=== PATIENT | female | born 1990 | race Two or more races ===

== ENCOUNTER 2021-02-13 13:00 | Inpatient (IN) | payer OTHER ==
[~2021-02-13] VITALS: Ht 162.6 cm; Wt 3.6 kg
[2021-03-11] MEDS ORDERED: PRENATAL CAPLE1 EAC1 PO (16:10)
[2021-03-11] MEDS ORDERED: IRON325 MG PO (16:11)
== END 2021-03-14 13:54 | disposition home or self-care (01) | DRG 788 ==
LOC: LDR 03-06 13:00 → SURG-SUITE 03-11 14:02 → LDR 03-11 14:02 → SURG-SUITE 03-12 13:37
PROVIDERS: ADMIT Obstetrics & Gynecology; ATTEND Obstetrics & Gynecology
PROC: 3E0P7VZ Introduction of Hormone into Female Reproductive, Via Natural or Artificial Opening (ICD-10-PCS; 2021-03-11)
PROC: 4A1HXFZ Monitoring of Products of Conception, Cardiac Rhythm, External Approach (ICD-10-PCS; 2021-03-11)
PROC: 10D00Z1 Extraction of Products of Conception, Low, Open Approach (ICD-10-PCS; principal; 2021-03-12 11:00)
DX: O61.0 Failed medical induction of labor (principal); O62.0 Primary inadequate contractions; O99.824 Streptococcus B carrier state complicating childbirth; Z3A.40 40 weeks gestation of pregnancy; Z37.0 Single live birth; Z20.822 Contact with and (suspected) exposure to COVID-19

== ENCOUNTER 2021-02-27 10:03 | Outpatient (CLI) | payer OTHER | END 2021-02-27 10:52 | disposition home or self-care (01) | LOC: NST 10:03 | PROVIDERS: ATTEND Obstetrics & Gynecology | DX: Z34.83 Encounter for supervision of other normal pregnancy, third trimester (principal) ==

== ENCOUNTER 2021-03-04 10:03 | Outpatient (CLI) | payer OTHER | END 2021-03-04 10:56 | disposition home or self-care (01) | LOC: NST 10:03 | PROVIDERS: ATTEND Obstetrics & Gynecology Maternal & Fetal Medicine | DX: Z34.83 Encounter for supervision of other normal pregnancy, third trimester (principal) ==

== ENCOUNTER 2021-03-07 08:04 | Outpatient (CLI) | payer OTHER | END 2021-03-07 08:34 | disposition home or self-care (01) | LOC: NST 08:04 | PROVIDERS: ATTEND Obstetrics & Gynecology Maternal & Fetal Medicine | DX: Z34.83 Encounter for supervision of other normal pregnancy, third trimester (principal) ==

== ENCOUNTER 2024-05-12 08:30 | Inpatient (IN) | payer OTHER ==
[~2024-05-12] VITALS: Ht 162.6 cm; Wt 3.6 kg
[~2024-05-12 08:30] MED LIST: IRON325 MG PO; PRENATAL CAPLE1 EAC1 PO
[2024-05-12 10:42] LABS: INR 0.97; PROTHROMBIN TIME 10.6 SECONDS (9.0-11.5)
[2024-05-12 11:38] LABS: ALBUMIN 2.7 gm/dL (3.4-5.0); BILIRUBIN TOTAL 0.35 mg/dL (0.3-1.2); CALCIUM 9.2 mg/dL (8.5-10.1); CREATININE SERUM 0.43 mg/dL (0.55-1.02); GFR 169.1; GLOBULINA 3.9 G/DL (2.4-3.5); POTASSIUM 4.22 mEq/L (3.5-5.1); TOTAL PROTEIN 6.6 gm/dL (6.4-8.2)
[2024-05-17 06:11] VITALS: BP 106/73
[2024-05-17] MEDS ORDERED: OXYTOCIN 1,000 ML IV ONE (14:15)
[2024-05-17] MEDS ORDERED: CEFAZOLIN SODIUM 1,000 MG VIAL IV ONE (15:15)
[2024-05-17] MEDS ORDERED: ERYTHROMYCIN BASE OPHT 1GM EACH TUBE OP ONE (15:15)
[2024-05-17] MEDS ORDERED: OXYTOCIN 10 UNITS/ML VIAL IV ONE (15:15)
[2024-05-17] MEDS ORDERED: MORPHINE SULFATE 4 MG/ML CARTRIDGE IV PRN (17:15)
[2024-05-17 17:26] VITALS: BP 94/60
[2024-05-17] MEDS ORDERED: MEPERIDINE HCL/PF 25 MG/ML VIAL IV SCH (20:00)
[2024-05-17] MEDS ORDERED: PROMETHAZINE HCL 25 MG/ML AMPUL IV SCH (20:00)
[2024-05-18 03:09] VITALS: BP 101/65
[2024-05-18] MEDS ORDERED: ACETAMINOPHEN 500 MG GEL..CAP PO SCH (06:00)
[2024-05-18 06:15] LABS: HEMATOCRIT 33.1 % (36.0-45.00); HEMOGLOBIN 11.1 g/dL (12.0-15.00); MEAN CELL VOLUME 84.9 fL (80.00-100.00); MEAN CORPUSCULAR HEMOGLOBIN 28.4 pg (27.00-32.0); MEAN CORPUSCULAR HGB CONC 33.5 g/dl (32.0-36.0); PLATELET COUNT 191 K/uL (150-450); RED CELL DISTRIBUTION WIDTH 14.7 % (11.5-14.5)
[2024-05-18] MEDS ORDERED: GABAPENTIN 300 MG CAPSULE PO SCH (09:00)
[2024-05-18] MEDS ORDERED: PNV,CALCIUM 72/IRON/FOLIC ACID 1 TAB TABLET PO SCH (09:00)
[2024-05-18] MEDS ORDERED: SIMETHICONE 125 MG CAPSULE PO SCH (09:00)
[2024-05-18] MEDS ORDERED: DOCUSATE SODIUM 100MG CAP PO SCH (09:00)
[2024-05-18 09:21] VITALS: BP 110/76
[2024-05-18] MEDS ORDERED: AZITHROMYCIN 500 MG TABLET PO NR (14:00)
[2024-05-18 16:00] VITALS: BP 105/70
[2024-05-19 01:47] VITALS: BP 107/72
[2024-05-19] MEDS ORDERED: AZITHROMYCIN 500 MG TABLET PO SCH (09:00)
[2024-05-19 09:08] VITALS: BP 106/70
== END 2024-05-19 15:21 | disposition home or self-care (01) | DRG 788 ==
LOC: O/R 05-17 05:14 → OB/GYN 05-17 05:14
PROVIDERS: Obstetrics & Gynecology Gynecology; ADMIT Obstetrics & Gynecology; ATTEND Obstetrics & Gynecology
PROC: 4A1HXCZ Monitoring of Products of Conception, Cardiac Rate, External Approach (ICD-10-PCS; 2024-05-17)
PROC: 10D00Z1 Extraction of Products of Conception, Low, Open Approach (ICD-10-PCS; principal; 2024-05-17 10:15)
DX: O34.211 Maternal care for low transverse scar from previous cesarean delivery (principal); Z3A.39 39 weeks gestation of pregnancy; Z37.0 Single live birth; Z20.822 Contact with and (suspected) exposure to COVID-19